=== PATIENT | male | born 2000 | race African-American/Black ===

== ENCOUNTER 2018-06-26 10:52 | Emergency (ER) | payer OTHER ==
[~2018-06-26] VITALS: Ht 180.3 cm; Wt 117.0 kg
[2018-06-26] MEDS ORDERED: ONDANSETRON ODT 4 MG TAB.RAPDIS PO ONE (11:15)
[2018-06-26] MEDS ORDERED: SUMAtriptan SUCC 6 MG/0.5 ML VIAL SQ ONE (11:15)
[2018-06-26] MEDS ORDERED: KETOROLAC 60 MG/2 ML VIAL. IM ONE (11:15)
[2018-06-26 11:32] VITALS: BP 151/89
[2018-06-26] MEDS ORDERED: SUMA100T3 PO (11:49)
--- NOTE | 2018-06-26 11:49 | PHYS DOC ---
Past History Past Medical History: Migraines Past Surgical History: No Surgical History Alcohol Use: None Drug Use: None Adult General Chief Complaint Chief Complaint: HEADACHE HPI HPI Patient is a 17-year-old male who presents with complaint of migraine headache that started after eating dinner last night. Patient states that when he got up from eating dinner that he had some visual changes that he indicates that he typically has with his migraines. He states that shortly thereafter he developed a headache. He states that he tried to sleep the headache off last night but headache has continued throughout the night and into this morning. He rates his pain to be a 9 out of 10 and states that this is typical for his migraines. He reports to photophobia as well as nausea but has had no vomiting. He denies any phonophobia. He states that nothing is improving his pain and pain is worsened with light and getting up and moving. Review of Systems Review of Systems Constitutional: Denies fever or chills [] Eyes: Denies change in visual acuity, redness, or eye pain [] Respiratory: Denies cough or shortness of breath [] Cardiovascular: Denies chest pain. [] GI: Denies abdominal pain. Admits to nausea without vomiting.[] Neurologic: Complains of headache. [] All other systems were reviewed and found to be within normal limits, except as documented in this note. Current Medications Current Medications Current Medications Medications (Trade) Dose Ordered Sig/Ilan Start Time Stop Time Status Last Admin Dose Admin Ketorolac Tromethamine (Toradol Im) 60 mg 1X ONCE 06/26/18 11:15 06/26/18 11:17 DC 06/26/18 11:20 60 MG Ondansetron HCl (Zofran Odt) 4 mg 1X ONCE 06/26/18 11:15 06/26/18 11:17 DC 06/26/18 11:17 4 MG Sumatriptan Succinate (Imitrex) 6 mg 1X ONCE 06/26/18 11:15 06/26/18 11:17 DC 06/26/18 11:20 6 MG Allergies Allergies Allergies Coded Allergies Type Severity Reaction Last Updated Verified No Known Drug Allergies 06/26/18 No Physical Exam Physical Exam Constitutional: Well developed, well nourished, no acute distress, non-toxic appearance. [] HENT: Normocephalic, atraumatic, bilateral external ears normal, oropharynx moist, no oral exudates, nose normal. [] Eyes: PERRLA, EOMI, conjunctiva normal, no discharge. [] Neck: Normal range of motion, no tenderness, supple, no stridor. [] Cardiovascular:Heart rate regular rhythm, no murmur [] Lungs & Thorax: Bilateral breath sounds clear to auscultation [] Abdomen: Bowel sounds normal, soft. [] Skin: Warm, dry, no erythema, no rash. [] Extremities: No tenderness, no cyanosis, no clubbing, ROM intact, no edema. [] Neurologic: Alert and oriented X 3, normal motor function, normal sensory function, no focal deficits noted. [] Current Patient Data Vital Signs Vital Signs Date Time Temp Pulse Resp B/P (MAP) Pulse Ox O2 Delivery O2 Flow Rate FiO2 06/26/18 11:32 70 16 151/89 (109) 98 Room Air 06/26/18 10:55 97.8 EKG EKG [] Radiology/Procedures Radiology/Procedures [] Course & Med Decision Making Course & Med Decision Making Pertinent Labs and Imaging studies reviewed. (See chart for details) Patient given IM dose of Toradol along with subcutaneous Imitrex and Zofran ODT. Patient rechecked approximately 30 minutes later and reports complete relief of headache. Dragon Disclaimer Dragon Disclaimer This electronic medical record was generated, in whole or in part, using a voice recognition dictation system. Departure Departure: Impression: Primary Impression: Migraine Disposition: HOME, SELF-CARE Condition: STABLE Referrals: NON,STAFF (PCP) Patient Instructions: Migraine Headache Scripts Sumatriptan Succinate (IMITREX) 100 Mg Tablet 1 TAB PO UD PRN for HEADACHE, #9 TAB Prov: JEREMY LIN Jr. DO 06/26/18 Problem Qualifiers Primary Impression: Migraine Migraine type: with aura Status migrainosus presence: without status migrainosus Intractability: not intractable Qualified Codes: G43.109 - Migraine with aura, not intractable, without status migrainosus JEREMY LIN Jr. DO Jun 26, 2018 11:49
== END 2018-06-26 11:56 | disposition home or self-care (01) ==
LOC: ER 10:52
DX: G43.109 Migraine with aura, not intractable, without status migrainosus (principal)
CPT/HCPCS: 96372; 99284; J1885; J3030; Q0162

== ENCOUNTER 2019-10-10 21:03 | Emergency (ER) | payer OTHER ==
[~2019-10-10] VITALS: Ht 180.3 cm; Wt 110.0 kg
[~2019-10-10 21:03] MED LIST: SUMA100T3 PO
[2019-10-10] MEDS ORDERED: predniSONE 20 MG TABLET PO ONE (21:45)
[2019-10-10] MEDS ORDERED: ALBUTEROL SULFATE 2.5 MG/3 ML NEBU. NEB ONE (21:45)
--- NOTE | 2019-10-10 21:46 | EKG ---
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
--- NOTE | 2019-10-10 21:57 | PHYS DOC ---
Past History Past Medical History: Migraines Past Surgical History: No Surgical History Alcohol Use: None Drug Use: None Adult General Chief Complaint Chief Complaint: CHEST PAIN HPI HPI Patient is a 18 year old male who presents with complaint of shortness of breath and chest pain. The patient states that he started having cough over one week ago that has been persistent and started gradually worsening over the last 2-3 days. States he has also been having shortness of breath and chest tightness with breathing. Notes that he has pain in his chest that worsens with coughing and when he takes a deep breath but states it is on both sides. He notes earlier this evening while he was sitting and watching TV that he started to feel numbness and tightness along the left side of his chest and left arm. Patient brought to the emergency department shortly thereafter by a friend for further evaluation. States he has history of migraines and has had similar symptoms of numbness associated with migraines in the past. Denies headache currently. States that he is able to move his arm normally. Does admit that prior to onset of symptoms he was using marijuana which he admits to occasional use. States that he uses vaporized marijuana. Has not had any similar symptoms with previous use. Denies any personal history of cardiac disease. Review of Systems Review of Systems Constitutional: Denies fever or chills [] Eyes: Denies change in visual acuity, redness, or eye pain [] HENT: Denies nasal congestion or sore throat [] Respiratory: Cough, shortness of breath, wheezing[] Cardiovascular: Chest pain, denies edema[] GI: Denies abdominal pain, nausea, vomiting, bloody stools or diarrhea [] : Denies dysuria or hematuria [] Musculoskeletal: Denies back pain or joint pain [] Integument: Denies rash or skin lesions [] Neurologic: Numbness in left arm, denies headache or focal weakness[] All other systems were reviewed and found to be within normal limits, except as documented in this note. Current Medications Current Medications Current Medications Medications (Trade) Dose Ordered Sig/Ilan Start Time Stop Time Status Last Admin Dose Admin Albuterol Sulfate (Ventolin) 5 mg 1X ONCE 10/10/19 21:45 10/10/19 21:46 UNV Prednisone (Prednisone) 60 mg 1X ONCE 10/10/19 21:45 10/10/19 21:46 UNV 10/10/19 21:48 60 MG Allergies Allergies Allergies Coded Allergies Type Severity Reaction Last Updated Verified No Known Drug Allergies 06/26/18 No Physical Exam Physical Exam Constitutional: Alert, afebrile, appears in mild respiratory distress. [] HENT: Normocephalic, atraumatic, bilateral external ears normal, oropharynx moist, no oral exudates, nose normal. [] Eyes: PERRLA, EOMI, conjunctiva normal, no discharge. [] Neck: Normal range of motion, no tenderness, supple, no stridor. [] Cardiovascular:Heart rate regular rhythm, no murmur [] Lungs & Thorax: Prolonged expiratory phase, expiratory wheezes bilaterally, no rales[] Abdomen: Bowel sounds normal, soft, no tenderness, no masses, no pulsatile masses. [] Skin: Warm, dry, no erythema, no rash. [] Back: No tenderness, no CVA tenderness. [] Extremities: No tenderness, no cyanosis, no clubbing, ROM intact, no edema. [] Neurologic: Alert and oriented X 3, normal motor function, normal sensory function including light touch and pinprick, no focal deficits noted. [] Current Patient Data Vital Signs Vital Signs Date Time Temp Pulse Resp B/P (MAP) Pulse Ox O2 Delivery O2 Flow Rate FiO2 10/10/19 21:48 76 22 148/91 (110 98 Room Air EKG EKG Interpreted by me: Heart rate 79, sinus rhythm, normal intervals, normal axis, no acute ST/T-wave abnormalities present[] Radiology/Procedures Radiology/Procedures [address] [address] IMAGING REPORT Signed PATIENT: RUSTY HAYWOOD ACCOUNT: [id number] : 2000 LOCATION: ER AGE: 18 SEX: M EXAM STATUS: PRE ER ORD. PHYSICIAN: AMISHA RODRIGUEZ MD REASON: cough PROCEDURE: CHEST PA & LATERAL Exam: Chest 2 views INDICATION: Cough TECHNIQUE: Frontal and lateral views the chest Comparisons: None FINDINGS: The cardiomediastinal silhouette and pulmonary vessels are within normal limits. The lung and pleural spaces are clear. IMPRESSION: No acute cardiopulmonary process. Electronically signed by: Tash Cuevas MD (10/10/2019 9:58 PM) [id number] DICTATED AND SIGNED BY: TASH CUEVAS MD DATE: 10/10/192157 CC: AMISHA RODRIGUEZ MD; PCP,NO ~ [] Course & Med Decision Making Course & Med Decision Making Pertinent Labs and Imaging studies reviewed. (See chart for details) Patient was given albuterol nebulized treatment and oral prednisone in the emergency department. EKG unremarkable and chest x-ray negative. Vital signs are stable at this time for inpatient does note improvement in symptoms with use of albuterol. Patient examination and findings are consistent with acute bronchitis. Given chronicity of symptoms with gradually worsening shortness of breath, I do feel patient would benefit from use of antibiotic treatment for possible bacterial cause of bronchitis symptoms. Discharged with prednisone, azithromycin, and albuterol inhaler. The patient's described symptoms of intermittent numbness in the left arm are suspicious for possible radiculopathy. Advised the patient finished treatment for acute bronchitis and recommended outpatient follow-up for further evaluation of radiculopathy symptoms of the left upper extremity. Advised follow-up with primary doctor in 5-7 days if symptoms are not improving and return to the emergency department for any worsening symptoms. Patient was understanding and in agreement with treatment plan.[] Dragon Disclaimer Dragon Disclaimer This electronic medical record was generated, in whole or in part, using a voice recognition dictation system. Departure Departure: Impression: Primary Impression: Acute bronchitis Additional Impression: Radiculopathy of arm Disposition: 01 HOME, SELF-CARE Condition: IMPROVED Referrals: PCP,NO (PCP) ROBBIN THOMPSON MD Patient Instructions: Acute Bronchitis, Cervical Radiculopathy Additional Instructions: Follow-up with a primary care provider in the next 5-7 days for reevaluation. Return to the emergency department for any worsening symptoms. Scripts Albuterol Sulfate (PROAIR HFA INHALER) 8.5 Gm Hfa.aer.ad 2 PUFF IH Q4-6HRS PRN for wheezing for 21 Days, #1 INHALER 0 Refills Prov: AMISHA RODRIGUEZ MD 10/10/19 Prednisone (PREDNISONE) 20 Mg Tablet 3 TAB PO DAILY, #12 TAB Prov: AMISHA RODRIGUEZ MD 10/10/19 Azithromycin (AZITHROMYCIN TABLET) 250 Mg Tablet 1 PKG PO UD for 5 Days, #6 TAB 0 Refills 2 the first day followed by 1 for days 2-5 Prov: AMISHA RODRIGUEZ MD 10/10/19 Problem Qualifiers Primary Impression: Acute bronchitis Bronchitis organism: unspecified organism Qualified Codes: J20.9 - Acute bronchitis, unspecified AMISHA RODRIGUEZ MD Oct 10, 2019 21:57
--- NOTE | 2019-10-10 22:00 | RAD ---
Exam: Chest 2 views INDICATION: Cough TECHNIQUE: Frontal and lateral views the chest Comparisons: None FINDINGS: The cardiomediastinal silhouette and pulmonary vessels are within normal limits. The lung and pleural spaces are clear. IMPRESSION: No acute cardiopulmonary process. Electronically signed by: Tash Trevino MD (10/10/2019 9:58 PM) [id number]
[2019-10-10] MEDS ORDERED: AZIT250T6 PO (22:21)
[2019-10-10] MEDS ORDERED: ALBU2.5V8 IH (22:21)
[2019-10-10] MEDS ORDERED: PRED20TA PO (22:21)
[2019-10-10 22:25] VITALS: BP 140/83
== END 2019-10-10 22:25 | disposition home or self-care (01) ==
LOC: ER 21:03
DX: J20.9 Acute bronchitis, unspecified (principal); M54.10 Radiculopathy, site unspecified
CPT/HCPCS: 71046; 93005; 94640; 99284; J7512; J7613

== ENCOUNTER 2019-11-14 08:33 | Emergency (ER) | payer OTHER ==
[~2019-11-14] VITALS: Ht 180.3 cm; Wt 110.0 kg
[~2019-11-14 08:33] MED LIST changes: +ALBU2.5V8 IH; +AZIT250T6 PO; +PRED20TA PO
[2019-11-14 08:57] VITALS: BP 152/67
[2019-11-14] MEDS ORDERED: PRED50TA PO (09:11)
[2019-11-14] MEDS ORDERED: CLON0.5T PO (09:11)
[2019-11-14] MEDS ORDERED: DICL75TA PO (09:11)
--- NOTE | 2019-11-14 09:11 | PHYS DOC ---
Past History Past Medical History: Migraines Past Surgical History: No Surgical History Alcohol Use: None Drug Use: None Adult General Chief Complaint Chief Complaint: RIB PAIN HPI HPI Patient is a 18-year-old -[place] male who presents with complaint of sharp left-sided lower chest pain with inspiration. He denies shortness of breath. Denies recent increase in activity or injury. No medications taken prior to arrival. Patient states that his pain started this morning upon awakening. He is rather anxious in the examination room but states that he has not had increased anxiety recently although he has suffered from this in the past. Review of Systems Review of Systems All other systems were reviewed and found to be within normal limits, except as documented in this note. Allergies Allergies Allergies Coded Allergies Type Severity Reaction Last Updated Verified No Known Drug Allergies 06/26/18 No Physical Exam Physical Exam Constitutional: Well developed, well nourished, no acute distress, non-toxic appearance. [] HENT: Normocephalic, atraumatic, bilateral external ears normal, oropharynx moist, no oral exudates, nose normal. [] Eyes: PERRLA, EOMI, conjunctiva normal, no discharge. [] Neck: Normal range of motion, no tenderness, supple, no stridor. [] Cardiovascular:Heart rate regular rhythm, no murmur [] Lungs & Thorax: Bilateral breath sounds clear to auscultation no chest wall pain Abdomen: Bowel sounds normal, soft, no tenderness, no masses, no pulsatile masses. [] Skin: Warm, dry, no erythema, no rash. [] Back: No tenderness, no CVA tenderness. [] Extremities: No tenderness, no cyanosis, no clubbing, ROM intact, no edema. [] Neurologic: Alert and oriented X 3, normal motor function, normal sensory function, no focal deficits noted. [] Psychologic: Affect normal, judgement normal, mood normal. [] EKG EKG [] Radiology/Procedures Radiology/Procedures Chest x-ray negative per emergency room provider interpretation. [] Course & Med Decision Making Course & Med Decision Making Pertinent Labs and Imaging studies reviewed. (See chart for details) Patient seen for symptoms consistent with pleurisy. Will get chest x-ray to evaluate for ammonia or collapsed lung. If chest x-ray is negative we will start him on prednisone and diclofenac and refer him to a primary care physician for treatment of possible underlying anxiety. Dragon Disclaimer Dragon Disclaimer This electronic medical record was generated, in whole or in part, using a voice recognition dictation system. Departure Departure: Impression: Primary Impression: Pleurisy Additional Impression: Anxiety Disposition: 01 HOME, SELF-CARE Condition: STABLE Referrals: PCPSULEMAN (PCP) Patient Instructions: Pleurisy Additional Instructions: Please follow-up with a primary care physician from the list provided to you at discharge. Scripts Clonazepam (KLONOPIN) 0.5 Mg Tablet 1 TAB PO BID PRN for ANXIETY / AGITATION, #10 TAB 1 Refill Prov: FRANCHESKA LAND DO 11/14/19 Diclofenac Sodium (DICLOFENAC SODIUM) 75 Mg Tablet.dr 1 TAB PO BID for Pain for 10 Days, #20 TAB 1 Refill Prov: FRANCHESKA LAND DO 11/14/19 Prednisone (PREDNISONE) 50 Mg Tablet 50 MG PO DAILY for Inflammation for 5 Days, #5 TAB Prov: FRANCHESKA LAND DO 11/14/19 Problem Qualifiers FRANCHESKA LAND DO Nov 14, 2019 09:11
--- NOTE | 2019-11-14 09:25 | RAD ---
CHEST PA LATERAL History: Left-sided chest pain. Comparison: October 10, 2019 Findings: No consolidation or pleural effusion. Normal heart size. No pneumothorax. Impression: 1. No acute cardiopulmonary process. Electronically signed by: Mike Baker DO (11/14/2019 9:22 AM) [id number]
== END 2019-11-14 09:25 | disposition home or self-care (01) ==
LOC: ER 08:33
DX: R09.1 Pleurisy (principal); F41.9 Anxiety disorder, unspecified; G43.909 Migraine, unspecified, not intractable, without status migrainosus
CPT/HCPCS: 71046; 99283

== ENCOUNTER 2019-11-18 16:09 | Emergency (ER) | payer OTHER ==
[~2019-11-18] VITALS: Ht 180.3 cm; Wt 110.0 kg
[~2019-11-18 16:09] MED LIST changes: +CLON0.5T PO; +DICL75TA PO; +PRED50TA PO
--- NOTE | 2019-11-18 16:36 | PHYS DOC ---
Past History Past Medical History: Migraines Past Surgical History: No Surgical History Alcohol Use: None Drug Use: None Adult General Chief Complaint Chief Complaint: ABDOMINAL PAIN HPI HPI Patient is a 18-year-old male who presents with complaint of epigastric and upper abdominal discomfort intermittently over the past week. He was seen here 4 days ago and diagnosed with pleurisy. Has been taking his medications as prescribed including prednisone. He states that he feels as though this may be acid reflux. No shortness of breath. Patient states that he has regurgitated/vomited some bile acid. No diarrhea. Review of Systems Review of Systems Constitutional: Denies fever or chills [] Eyes: Denies change in visual acuity, redness, or eye pain [] HENT: Denies nasal congestion or sore throat [] Respiratory: Denies cough or shortness of breath [] Cardiovascular: No additional information not addressed in HPI [] GI: Denies abdominal pain, nausea, vomiting, bloody stools or diarrhea [] : Denies dysuria or hematuria [] Musculoskeletal: Denies back pain or joint pain [] Integument: Denies rash or skin lesions [] Neurologic: Denies headache, focal weakness or sensory changes [] Endocrine: Denies polyuria or polydipsia [] All other systems were reviewed and found to be within normal limits, except as documented in this note. Allergies Allergies Allergies Coded Allergies Type Severity Reaction Last Updated Verified No Known Drug Allergies 06/26/18 No Physical Exam Physical Exam Constitutional: Well developed, well nourished, no acute distress, non-toxic appearance. [] HENT: Normocephalic, atraumatic, bilateral external ears normal, oropharynx moist, no oral exudates, nose normal. [] Eyes: PERRLA, EOMI, conjunctiva normal, no discharge. [] Neck: Normal range of motion, no tenderness, supple, no stridor. [] Cardiovascular:Heart rate regular rhythm, no murmur [] Lungs & Thorax: Bilateral breath sounds clear to auscultation [] Abdomen: Bowel sounds normal, soft, no tenderness, no masses, no pulsatile masses. [] Skin: Warm, dry, no erythema, no rash. [] Back: No tenderness, no CVA tenderness. [] Extremities: No tenderness, no cyanosis, no clubbing, ROM intact, no edema. [] Neurologic: Alert and oriented X 3, normal motor function, normal sensory function, no focal deficits noted. [] Psychologic: Affect normal, judgement normal, mood normal. [] EKG EKG [] Radiology/Procedures Radiology/Procedures [] Course & Med Decision Making Course & Med Decision Making Pertinent Labs and Imaging studies reviewed. (See chart for details) Patient seen for upper GI symptoms. Will check basic labs give GI cocktail and ODT Zofran. Patient feeling better after GI cocktail. Will provide Pepcid and discharge home. Labs are stable. Dragon Disclaimer Dragon Disclaimer This electronic medical record was generated, in whole or in part, using a voice recognition dictation system. Departure Departure: Impression: Primary Impression: Gastritis Disposition: HOME, SELF-CARE Condition: IMPROVED Referrals: PCPSUELMAN (PCP) Scripts Famotidine (PEPCID) 20 Mg Tablet 1 TAB PO BID for Gastritis for 14 Days, #28 TAB 0 Refills Prov: FRANCHESKA LAND DO 11/18/19 FRANCHESKA LAND DO Nov 18, 2019 16:36
[2019-11-18] MEDS ORDERED: ONDANSETRON ODT 4 MG TAB.RAPDIS PO ONE (16:45)
[2019-11-18] MEDS ORDERED: LIDO:MAALOX 1:1 20 ML SINGLE DOSE. PO ONE (16:45)
[2019-11-18 17:27] LABS: BASO % 0 % (0-3); EOS % 0 % (0-3); HEMATOCRIT 47.1 % (39.0-53.0); HEMOGLOBIN 15.7 g/dL (13.0-17.5); LYMPH # 1.7 x10^3/uL (1.0-4.8); LYMPH % 22 % (24-48); MEAN CORPUSCULAR HEMOGLOBIN 30 pg (25-35); MEAN CORPUSCULAR HGB CONC 33 g/dL (31-37); MEAN CORPUSCULAR VOLUME 91 fL (79-100); MONO # 0.5 x10^3/uL (0.0-1.1); MONO % 6 % (0-9); NEUT # 5.7 x10^3uL (1.8-7.7); NEUT % 71 % (31-73); PLATELET COUNT 256 x10^3/uL (140-400); RED BLOOD COUNT 5.17 x10^6/uL (4.30-5.70)
[2019-11-18 17:36] LABS: CALCIUM 9.2 mg/dL (8.5-10.1); CREATININE 1.1 mg/dL (0.7-1.3); GFR 103.3; POTASSIUM 3.7 mmol/L (3.5-5.1)
[2019-11-18] MEDS ORDERED: FAMO-63 PO (17:41)
[2019-11-18 17:43] LABS: ALBUMIN 3.8 g/dL (3.4-5.0); ALBUMIN/GLOBULIN RATIO 0.9 (1.0-1.7); TOTAL BILIRUBIN 0.5 mg/dL (0.2-1.0); TOTAL PROTEIN 7.9 g/dL (6.4-8.2)
[2019-11-18 18:08] VITALS: BP 152/67
== END 2019-11-18 18:05 | disposition home or self-care (01) ==
LOC: ER 16:09
DX: K29.70 Gastritis, unspecified, without bleeding (principal); G43.909 Migraine, unspecified, not intractable, without status migrainosus
CPT/HCPCS: 36415; 80053; 83690; 85025; 99283

== ENCOUNTER → 2020-10-05 | Outpatient (CLI) | payer OTHER, BC ==
[~2020-10-05] MED LIST changes: +FAMO-63 PO
== END ==
LOC: LAB 14:57
PROVIDERS: ATTEND Nurse Practitioner Family
DX: R79.89 Other specified abnormal findings of blood chemistry (principal)
CPT/HCPCS: 36415; 84484

== ENCOUNTER 2021-05-27 05:01 | Emergency (ER) | payer BC, OTHER ==
[~2021-05-27] VITALS: Ht 180.3 cm; Wt 136.1 kg
--- NOTE | 2021-05-27 05:28 | PHYS DOC ---
Past History Past Medical History: No Pertinent History, Migraines Past Surgical History: No Surgical History, Other Additional Past Surgical Histo: hernia surgery Alcohol Use: None Drug Use: None Adult General Chief Complaint Chief Complaint: DENTAL PROBLEM HPI HPI Patient is a 20-year-old male who comes into the emergency department with dental pain. States he was supposed to have a root canal yesterday but could not afford it. States he took some ibuprofen yesterday and is on an antibiotic. Rates the pain 7 out of 10, sharp in nature with no radiation. Denies any trouble or pain swallowing, neck pain, chest pain, abdominal pain, nausea, vomiting. Review of Systems Review of Systems Review of systems otherwise unremarkable except noted in HPI Allergies Allergies Allergies Coded Allergies Type Severity Reaction Last Updated Verified No Known Drug Allergies 06/26/18 No Physical Exam Physical Exam Constitutional: Well developed, well nourished, no acute distress, non-toxic appearance. [] HENT: Normocephalic, atraumatic, bilateral external ears normal, oropharynx moist, no oral exudates, poor dentition generally, with tooth notable for probable dental carry, nose normal. [] Neck: Normal range of motion, no tenderness, supple, no stridor. [] Cardiovascular:Heart rate regular rhythm, no murmur [] Lungs & Thorax: Bilateral breath sounds clear to auscultation [] Neurologic: Alert and oriented X 3, normal motor function, normal sensory function, no focal deficits noted. [] Psychologic: Affect normal, judgement normal, mood normal. [] Current Patient Data Vital Signs Vital Signs Date Time Temp Pulse Resp B/P (MAP) Pulse Ox O2 Delivery O2 Flow Rate FiO2 05/27/21 05:09 97.7 85 18 144/94 (111) 98 Room Air EKG EKG [] Radiology/Procedures Radiology/Procedures [] Heart Score C/O Chest Pain: No Risk Factors: Risk Factors: DM, Current or recent (<one month) smoker, HTN, HLP, family history of CAD, obesity. Risk Scores: Risk Factors: DM, Current or recent (<one month) smoker, HTN, HLP, family history of CAD, obesity. Course & Med Decision Making Course & Med Decision Making Patient is a 20-year-old male who presents to the emergency department with a chief complaint of dental pain Vital signs not concerning. Physical exam noted above. Given oral pain medication. Discussed pain management at home. Given contact information for emergency dentist. Given contact information for local free clinics. Advised to call all in the morning to set up an appointment with whoever will take them as soon as possible. Gave return precautions to the ED. Patient grateful, verbalized understanding agree with plan of discharge. Dragon Disclaimer Dragon Disclaimer This electronic medical record was generated, in whole or in part, using a voice recognition dictation system. Departure Departure: Impression: Primary Impression: Pain, dental Disposition: HOME / SELF CARE / HOMELESS Condition: GOOD Referrals: STEFANY ELDER (PCP) Patient Instructions: Dental Pain Additional Instructions: Thank you for coming into the emergency department tonight and allowing us to take care of you. Please read the attached information carefully to go over things we discussed. Please continue Tylenol, ibuprofen and Orajel at home as we discussed. You can add Benadryl as well as needed. You are given contact information for local free clinics in the emergency dentist. Please call all of them in the morning to try to get in as soon as possible to discuss need for Versus root canal versus extraction. EVANGELINA CHEATHAM MD May 27, 2021 05:28
[2021-05-27 05:40] VITALS: BP 140/88
[2021-05-27] MEDS ORDERED: BENZOCAINE ONE 20% MUCOSAL SPRAY. MM (05:45)
[2021-05-27] MEDS ORDERED: IBUPROFEN 800 MG TABLET. PO ONE (05:45)
[2021-05-27] MEDS ORDERED: oxyCODONE/APAP 5/325 1 TAB TABLET PO ONE (05:45)
== END 2021-05-27 05:43 | disposition home or self-care (01) ==
LOC: ER 05:01
DX: K08.89 Other specified disorders of teeth and supporting structures (principal)
CPT/HCPCS: 99283-25